=== PATIENT | female | born 2000 | race Caucasian/White ===

== ENCOUNTER 2018-06-28 16:51 | Emergency (ER) | payer OTHER ==
[2018-06-28 17:31] VITALS: BP 135/68
--- NOTE | 2018-06-28 18:35 | UC ---
Respiratory Complaint HPI - HPI Summary HPI Summary: Pt presents with c/o cough that has worsened over the last 2 weeks. Pt reporst that her chest feels tight with coughing, the cough keeps her awake at night and occasional is unable to "catch her breath" when having a "coughing fit" - History of Current Complaint Chief Complaint: UCGeneralIllness Stated Complaint: COUGH,FEVERISH Time Seen by Provider: 06/28/18 18:26 Hx Obtained From: Patient Hx Last Menstrual Period: 06/14/18 ?: No Onset/Duration: Sudden Onset, Lasting Weeks Timing: Intermittent Episodes Severity Initially: Mild Severity Currently: Severe Pain Intensity: 10 Character: Cough: Nonproductive Aggravating Factors: Exertion, Deep Breaths, Recumbent Position Alleviating Factors: Nothing Associated Signs And Symptoms: Positive: Chills, URI - Risk Factors Pulmonary Embolism Risk Factors: Negative Cardiac Risk Factors: Negative Pseudomonas Risk Factors: Negative Tuberculosis Risk Factors: Negative - Allergies/Home Medications Allergies/Adverse Reactions: Allergies Allergy/AdvReac Type Severity Reaction Status Date / Time No Known Allergies Allergy Verified 06/28/18 17:22 Home Medications: Home Medications Dextromethorphan Polistirex [Delsym] 30 mg PO Q4H PRN 06/28/18 [History Confirmed 06/28/18] Ibuprofen TAB* [Advil TAB*] 200 mg PO Q6H PRN 06/28/18 [History Confirmed ] PMH/Surg Hx/FS Hx/Imm Hx Previously Healthy: Yes - Surgical History Surgical History: None - Family History Known Family History: Positive: Cardiac Disease - Social History Occupation: Student Lives: With Family Alcohol Use: Rare Substance Use Type: None Smoking Status (MU): Never Smoked Tobacco Have You Smoked in the Last Year: No - Immunization History Vaccination Up to Date: Yes Review of Systems Constitutional: Chills, Fatigue Skin: Negative Eyes: Negative ENT: Negative Respiratory: Shortness Of Breath, Cough Cardiovascular: Negative Gastrointestinal: Negative Genitourinary: Negative Motor: Negative Neurovascular: Negative Musculoskeletal: Negative Neurological: Negative Psychological: Negative Is Patient Immunocompromised?: No All Other Systems Reviewed And Are Negative: Yes Physical Exam Triage Information Reviewed: Yes Appearance: Well-Appearing Vital Signs: Initial Vital Signs Temp 98.9 F 06/28/18 17:25 Pulse 94 06/28/18 17:25 Resp 16 06/28/18 17:25 BP 135/68 06/28/18 17:25 Pulse Ox 98 06/28/18 17:25 Vital Signs Reviewed: Yes Eye Exam: Normal ENT Exam: Normal Dental Exam: Normal Neck exam: Normal Respiratory: Positive: Normal breath sounds, Other: - coughed throughout exam Cardiovascular Exam: Normal Musculoskeletal Exam: Normal Neurological Exam: Normal Psychological Exam: Normal Skin Exam: Normal UC Diagnostic Evaluation - Laboratory O2 Sat by Pulse Oximetry: 98 Respiratory Course/Dx - Differential Dx/Diagnosis Differential Diagnosis/HQI/PQRI: Bronchitis, Influenza Provider Diagnoses: Bronchitis Discharge - Sign-Out/Discharge Documenting (check all that apply): Patient Departure All imaging exams completed and their final reports reviewed: No Studies - Discharge Plan Condition: Stable Disposition: HOME Prescriptions: Albuterol HFA INHALER* [Ventolin HFA Inhaler*] 1 - 2 puff INH Q6H PRN #1 mdi PRN Reason: Sob/Wheezing Azithromycin TAB* [Zithromax TAB (Z-ROMAN) 250 mg #6 tabs] 2 tab PO .TODAY, THEN 1 DAILY #1 roman Benzonatate CAP* [Tessalon 100 MG CAP*] 100 mg PO TID PRN #30 cap PRN Reason: Cough predniSONE [Prednisone 20 MG TAB] 20 mg PO DAILY #4 tablet Patient Education Materials: Acute Bronchitis (ED) Forms: *Gen. Provider Communication Referrals: [facility] [Outside] - If Needed No Primary Care Phys,NOPCP [Primary Care Provider] - - Billing Disposition and Condition Condition: STABLE Disposition: Home
== END 2018-06-28 18:47 | disposition home or self-care (01) ==
LOC: UCCORT 16:51
DX: J40 Bronchitis, not specified as acute or chronic (principal)
CPT/HCPCS: 99212; G0463